=== PATIENT | female | born 1995 | race Caucasian/White ===

== ENCOUNTER 2018-09-08 11:30 | Outpatient (CLI) | payer BC ==
--- NOTE | 2018-09-08 12:26 | XRAY Report ---
Reason: CHEST PAIN,SOB Procedure Date: 09/08/2018 Accession Number: [id number] / [id number] Procedure: XR - Chest 2 View X-Ray CPT Code: 50502 FULL RESULT: EXAM: CHEST RADIOGRAPHY EXAM DATE: 09/08/2018 11:35 AM. CLINICAL HISTORY: Chest pain, shortness of breath. COMPARISON: None. TECHNIQUE: 2 views. FINDINGS: Lungs/Pleura: No focal opacities evident. No pleural effusion. No pneumothorax. High normal volumes. Mediastinum: Heart and mediastinal contours are unremarkable. Other: None. IMPRESSION: High normal lung volumes and an otherwise unremarkable radiograph. RADIA
== END 2018-09-08 11:31 | disposition home or self-care (01) ==
LOC: DI 11:30
PROVIDERS: ATTEND Physician Assistant
DX: R06.02 Shortness of breath (principal)
CPT/HCPCS: 71046

== ENCOUNTER 2018-09-12 13:52 | Emergency (ER) | payer BC ==
[2018-09-12] MEDS ORDERED: predniSONE 20 MG TABLET PO STA (14:06)
[2018-09-12] MEDS ORDERED: diphenhydrAMINE 25 MG CAPSULE PO STA (14:06)
--- NOTE | 2018-09-12 14:22 | ED Physician Documentation ---
History of Present Illness - Stated complaint Stated Complaint: ALLERGIC REACTION - Chief complaint Chief Complaint: Allergic Rx - History obtained from History obtained from: Patient - History of Present Illness Timing: Today, How many hours ago (2) Pain level max: 0 Pain level now: 0 - Additonal information Additional information: 23-year-old female presents to the emergency department with an insect bite to the right thigh. Occurred about an hour ago. Took one Benadryl. Has increasing redness. States that her throat felt tight. No wheezing or difficulty breathing. Has had allergic reactions in the past. Nothing makes it better or worse Review of Systems Constitutional: denies: Fever, Chills GI: denies: Vomiting : denies: Now [facility] PAST MEDICAL HISTORY - Past Medical History Past Medical History: No - Past Surgical History Past Surgical History: No - Present Medications Home Medications: Ambulatory Orders Medication Instructions Recorded Confirmed Dextroamphetamine/Amphetamine 10 mg PO DAILY 09/12/18 09/12/18 [Adderall Xr 10 mg Capsule] Epinephrine [Auvi-Q] 0.15 mg IJ ONCE PRN 09/12/18 09/12/18 predniSONE [Prednisone] 40 mg PO DAILY #6 tablet 09/12/18 - Allergies Allergies/Adverse Reactions: Allergies Allergy/AdvReac Type Severity Reaction Status Date / Time sulfamethoxazole Allergy Hives Verified 09/12/18 13:59 [From Bactrim] trimethoprim [From Bactrim] Allergy Hives Verified 09/12/18 13:59 ants Allergy Anaphylaxis Uncoded 09/12/18 13:59 - Social History Does the pt smoke?: No Smoking Status: Never smoker Does the pt drink ETOH?: No Does the pt have substance abuse?: No - Immunizations Immunizations are current?: Yes PD ED PE NORMAL - Vitals Vital signs reviewed: Yes - General General: Alert and oriented X 3, No acute distress - HEENT HEENT: Moist mucous membranes, Pharynx benign - Neck Neck: Supple, no meningeal sign - Cardiac Cardiac: RRR - Respiratory Respiratory: No respiratory distress, Clear bilaterally - Abdomen Abdomen: Soft, Non tender, Non distended - Derm Derm: Warm and dry, Other (3 x 4 cm area of erythema to the anterior right thigh . No induration or fluctuance.) - Neuro Neuro: Alert and oriented X 3 Results - Vitals Vitals: Vital Signs - 24 hr 09/12/18 13:57 Temperature 36.7 C Heart Rate 82 Respiratory 18 Rate Blood Pressure 145/102 H O2 Saturation 100 Oxygen O2 Source Room air PD MEDICAL DECISION MAKING - ED course Complexity details: considered differential, d/w patient ED course: Patient with a local allergic reaction to the right thigh. Lungs are clear to auscultation bilaterally. No pharyngeal swelling. No stridor. No wheezing. No hives. Will place on steroids for home and follow-up with her doctor. Patient counseled regarding signs and symptoms for which I believe and urgent re-evaluation would be necessary. Patient with good understanding of and agreement to plan and is comfortable going home at this time This document was made in part using voice recognition software. While efforts are made to proofread this document, sound alike and grammatical errors may occur. Departure - Departure Disposition: 01 Home, Self Care Clinical Impression: Allergic reaction Qualifiers: Encounter type: initial encounter Qualified Code(s): T78.40XA - Allergy, unspecified, initial encounter Condition: Good Health Concerns: allergic reaction Plan of Treatment: steroids, benadryl Care Goals: improve condition Assessment: improved Instructions: ED Bite Sting Insect Gen Allergic React Follow-Up: Todd Garzon PA-C [Primary Care Provider] - As Needed Prescriptions: predniSONE [Prednisone] 40 mg PO DAILY #6 tablet Comments: You can use Benadryl as well at home. Take steroids until gone. Return if you worsen
[2018-09-12 14:26] VITALS: BP 113/78
== END 2018-09-12 14:26 | disposition home or self-care (01) ==
LOC: ED 13:52
DX: T63.481A Toxic effect of venom of other arthropod, accidental (unintentional), initial encounter (principal); Y93.01 Activity, walking, marching and hiking; Y92.828 Other wilderness area as the place of occurrence of the external cause
CPT/HCPCS: 99283; A9270; J7512

== ENCOUNTER 2019-12-05 00:01 | Emergency (ER) | payer BC ==
--- NOTE | 2019-12-05 00:04 | ED Physician Documentation ---
History of Present Illness - Stated complaint Stated Complaint: SÁNCHEZ - History obtained from History obtained from: Patient - Additonal information Additional information: Patient is a 24-year-old female presents with a chief complaint of migraine headache. She reports she has a history of migraine headache she tried taking a dose of Maxalt which did not resolve her symptoms. She reports the headache is typical of her usual migraine headache. She denies any fevers.She states the headache is not the worst headache of her life and it is not sudden in intensity she did describe an aura she reports that before her headache started she had a feeling of seeing some abnormal lites and decreased mood and overall feeling that her headache was coming on and felt an aura and then described the headache as starting in her occiput and then diffusely spread into bilateral temples.She denies any neck pain or any recent illnesses.She denies any history of hypercoagulability or bleeding disorders denies any family history of cerebral aneurysms or subarachnoid emergency. Review of Systems Constitutional: reports: Reviewed and negative Eyes: reports: Reviewed and negative Ears: reports: Reviewed and negative Nose: reports: Reviewed and negative Throat: reports: Reviewed and negative Cardiac: reports: Reviewed and negative Respiratory: reports: Reviewed and negative GI: reports: Reviewed and negative : reports: Reviewed and negative Skin: reports: Reviewed and negative Musculoskeletal: reports: Reviewed and negative Neurologic: reports: Headache Psychiatric: reports: Reviewed and negative Endocrine: reports: Reviewed and negative Immunocompromised: reports: Reviewed and negative PD PAST MEDICAL HISTORY - Past Surgical History Past Surgical History: No - Present Medications Home Medications: Ambulatory Orders Medication Instructions Recorded Confirmed Dextroamphetamine/Amphetamine 10 mg PO DAILY 09/12/18 09/12/18 [Adderall Xr 10 mg Capsule] Epinephrine [Auvi-Q] 0.15 mg IJ ONCE PRN 09/12/18 09/12/18 - Allergies Allergies/Adverse Reactions: Allergies Allergy/AdvReac Type Severity Reaction Status Date / Time sulfamethoxazole Allergy Hives Verified 09/12/18 13:59 [From Bactrim] trimethoprim [From Bactrim] Allergy Hives Verified 09/12/18 13:59 ants Allergy Anaphylaxis Uncoded 09/12/18 13:59 - Social History Does the pt smoke?: No Smoking Status: Never smoker Does the pt drink ETOH?: No Does the pt have substance abuse?: No - Immunizations Immunizations are current?: Yes PD ED PE NORMAL - Vitals Vital signs reviewed: Yes - General General: Alert and oriented X 3, No acute distress, Well developed/nourished - HEENT HEENT: Atraumatic, PERRL, EOMI, Moist mucous membranes, Pharynx benign, Dentition benign - Neck Neck: Supple, no meningeal sign - Cardiac Cardiac: RRR, No murmur, No gallop, No rub, Strong equal pulses - Respiratory Respiratory: No respiratory distress, Clear bilaterally - Abdomen Abdomen: Normal bowel sounds, Soft, Non tender, Non distended, No organomegaly - Female Female : Deferred - Rectal Rectal: Deferred - Back Back: No CVA TTP, No spinal TTP - Derm Derm: Normal color, Warm and dry, No rash - Extremities Extremities: No deformity, No tenderness to palpate, Normal ROM s pain, No edema, No calf tenderness / cord - Neuro Neuro: Alert and oriented X 3, hydrator 2-12 intact, No motor deficit, No sensory deficit, Normal speech, Other (No droop, no unilateral weakness, normal [id number] normal [id number] normal rapid alternating movements no pronator drift sensations intact throughout strength is 5 out of 5 throughout) - Psych Psych: Normal mood, Normal affect Results - Vitals Vitals: Vital Signs - 24 hr 12/05/19 12/05/19 12/05/19 00:04 00:13 01:43 Temperature 36.4 C L 36.4 C L 36.7 C Heart Rate 70 70 83 Respiratory 16 16 18 Rate Blood Pressure 153/95 H 153/95 H 127/76 O2 Saturation 99 99 100 Oxygen O2 Source Room air - Labs Labs: Laboratory Tests 12/05/19 12/05/19 01:00 01:00 WBC 7.4 RBC 4.82 Hgb 14.3 Hct 43.0 MCV 89.2 MCH 29.7 MCHC 33.3 RDW 12.4 Plt Count 255 MPV 10.3 Neut # (Auto) 2.7 Lymph # (Auto) 3.7 H [place] # (Auto) 0.7 Eos # (Auto) 0.1 Baso # (Auto) 0.1 Absolute Nucleated RBC 0.00 Nucleated RBC % 0.0 Sodium 137 Potassium 3.6 Chloride 105 Carbon Dioxide 21 Anion Gap 11.0 BUN 16 Creatinine 0.8 Estimated GFR (MDRD) 87 L Glucose 105 H Calcium 9.1 Total Bilirubin 0.5 AST 18 ALT 12 Alkaline Phosphatase 53 Total Protein 7.6 Albumin 4.3 Globulin 3.3 Albumin/Globulin Ratio 1.3 Lipase 23 PD MEDICAL DECISION MAKING - ED course Complexity details: reviewed results, re-evaluated patient, considered differential (Migraine headache no red flags to suggest subarachnoid hemorrhage), d/w patient, d/w family ED course: 24-year-old female presents with what she is describing is a migraine headache with an aura tried Maxalt at home given a liter of IV fluids as well as IV Benadryl and Compazine her headaches completely resolved I did offer to perform imaging of the head however she is her symptoms Have completely resolved and she like to be discharged home and follow-up with her primary care provider tomorrow. Departure - Departure Disposition: 01 Home, Self Care Clinical Impression: Migraine Qualifiers: Migraine type: with aura Status migrainosus presence: without status migrainosus Intractability: not intractable Qualified Code(s): G43.109 - Migraine with aura, not intractable, without status migrainosus Condition: Stable Instructions: ED Headache Migraine Follow-Up: JENNY RODRIGUEZ DO [Primary Care Provider] - 12/06/19 Comments: call your physician on Friday to schedule a follow up. return to the emergency department for fevers, worsening headaches or any concerns. Discharge Date/Time: 12/05/19 01:43
[2019-12-05] MEDS ORDERED: PROCHLORPERAZINE 10 MG/2 ML VIAL IVP STA (00:29)
[2019-12-05] MEDS ORDERED: SODIUM CHLORIDE 0.9% 1,000 ML IV STA (00:29)
[2019-12-05] MEDS ORDERED: diphenhydrAMINE INJ 50 MG/ML VIAL IVP STA (00:29)
[2019-12-05 01:05] LABS: BASOPHILS # (AUTO) 0.1 10^3/uL (0.0-0.1); BASOPHILS % (AUTO) 0.7 %; EOSINOPHILS # (AUTO) 0.1 10^3/uL (0.0-0.7); EOSINOPHILS % (AUTO) 1.8 %; HGB - HEMOGLOBIN 14.3 g/dL (12.0-16.0); LYMPHOCYTES # (AUTO) 3.7 10^3/uL (1.5-3.5); LYMPHOCYTES % (AUTO) 50.9 %; MEAN CORPUSCULAR HEMOGLOBIN 29.7 pg (27.0-31.0); MEAN CORPUSCULAR HGB CONC 33.3 g/dL (32.0-36.0); MEAN CORPUSCULAR VOLUME 89.2 fL (81.0-99.0); MEAN PLATELET VOLUME 10.3 fL (7.9-10.8); MONOCYTES # (AUTO) 0.7 10^3/uL (0.0-1.0); MONOCYTES % (AUTO) 9.4 %; NEUTROPHILS # (AUTO) 2.7 10^3/uL (1.5-6.6); NEUTROPHILS % (AUTO) 37.1 %; PLT - PLATELET COUNT 255 10^3/uL (130-450); RED BLOOD COUNT 4.82 10^6/uL (4.20-5.40); RED CELL DISTRIBUTION WIDTH 12.4 % (12.0-15.0); WHITE BLOOD COUNT 7.4 x10^3/uL (4.8-10.8)
[2019-12-05 01:18] LABS: ALBUMIN 4.3 g/dL (3.2-5.5); ALBUMIN/GLOBULIN RATIO 1.3 (1.0-2.2); BILIRUBIN,TOTAL 0.5 mg/dL (0.2-1.0); CALCIUM 9.1 mg/dL (8.5-10.3); CREATININE 0.8 mg/dL (0.4-1.0); TOTAL PROTEIN 7.6 g/dL (6.7-8.2)
[2019-12-05 01:45] VITALS: BP 127/76
== END 2019-12-05 01:43 | disposition home or self-care (01) ==
LOC: ED 00:01
DX: G43.109 Migraine with aura, not intractable, without status migrainosus (principal)
CPT/HCPCS: 36415; 80053; 83690; 85025; 96374; 99283; J1200

== ENCOUNTER 2021-05-10 20:43 | Emergency (ER) | payer BC, OTHER ==
[2021-05-10 21:09] LABS: BILIRUBIN,URINE NEGATIVE (NEGATIVE); GLUCOSE, URINE (UA) NEGATIVE (NEGATIVE); KETONES,URINE (UA) NEGATIVE (NEGATIVE); LEUKOCYTE ESTERASE, URINE NEGATIVE (NEGATIVE); NITRITE,URINE NEGATIVE (NEGATIVE); OCCULT BLOOD,URINE NEGATIVE (NEGATIVE); PH,URINE 7.5 PH (5.0-7.5); PROTEIN,URINE NEGATIVE (NEGATIVE); UROBILINOGEN,URINE 0.2 (NORMAL) E.U./dL (NORMAL)
[2021-05-10 21:12] LABS: CLARITY,URINE CLEAR (CLEAR); HCG UR QUAL NEGATIVE
--- NOTE | 2021-05-10 23:03 | ED Physician Documentation ---
History of Present Illness - Stated complaint Stated Complaint: FEMALE /FEVER/BACK PX - Chief complaint Chief Complaint: UTI - History obtained from History obtained from: Patient - History of Present Illness Timing: How many weeks ago (2) Improved by: no ameliorating factors Worsened by: no exacerbating factors - Additonal information Additional information: c/o 2 weeks of suprapubic burning pain, not clearly temporally related to urinating nor any other exacerbating factors. She also has pain across lower back which also has no exacerbating nor ameliorating factors. She was evaluated in outpatient setting and she says a UA performed was normal, but she was prescribed amoxil TID, presumably for suspected UTI based on symptoms. Tonight she developed fever Tmax 101.5, prompting her to come to ED as per instructions by her primary care provider. She is COVID vaccinated. She took tylenol CANOPY STRINGER; she says she took two 650mg acetaminophen that was a slow-release form (she says this was accidental, as she knows not to take more than 1 of these tablets per dose) Review of Systems Constitutional: reports: Fever, Chills. denies: Myalgias, Fatigue Cardiac: reports: Reviewed and negative Respiratory: reports: Reviewed and negative GI: reports: Abdominal Pain (suprapubic burning, but no abdominal pain per se). denies: Nausea, Vomiting, Constipation, Diarrhea : denies: Dysuria, Frequency, Hematuria, Discharge, Now EGA Skin: denies: Rash, Lesions Musculoskeletal: reports: Back pain PD PAST MEDICAL HISTORY - Past Medical History Neuro: Migraines - Past Surgical History Past Surgical History: No - Present Medications Home Medications: Ambulatory Orders Medication Instructions Recorded Confirmed Dextroamphetamine/Amphetamine 10 mg PO DAILY 09/12/18 09/12/18 [Adderall Xr 10 mg Capsule] EPINEPHrine [Auvi-Q] 0.15 mg IJ ONCE PRN 09/12/18 09/12/18 - Allergies Allergies/Adverse Reactions: Allergies Allergy/AdvReac Type Severity Reaction Status Date / Time sulfamethoxazole Allergy Hives Verified 05/10/21 20:46 [From Bactrim] trimethoprim [From Bactrim] Allergy Hives Verified 05/10/21 20:46 ants Allergy Anaphylaxis Uncoded 05/10/21 20:46 - Social History Does the pt smoke?: No Smoking Status: Never smoker Does the pt drink ETOH?: No Does the pt have substance abuse?: No - Immunizations Immunizations are current?: Yes PD ED PE NORMAL - Vitals Vital signs reviewed: Yes - General General: Alert and oriented X 3, No acute distress, Well developed/nourished - Cardiac Cardiac: RRR, No murmur - Respiratory Respiratory: No respiratory distress, Clear bilaterally - Abdomen Abdomen: Normal bowel sounds, Soft, Non tender, Non distended - Back Back: No CVA TTP Results - Vitals Vitals: Oxygen O2 Source Room air - Labs Labs: Laboratory Tests 05/10/21 05/10/21 05/10/21 20:57 23:37 23:37 WBC 4.5 L RBC 4.65 Hgb 13.3 Hct 40.3 MCV 86.7 MCH 28.6 MCHC 33.0 RDW 11.9 L Plt Count 205 MPV 10.3 Neut # (Auto) 3.4 Lymph # (Auto) 0.4 L [place] # (Auto) 0.6 Eos # (Auto) 0.1 Baso # (Auto) 0.0 Absolute Nucleated RBC 0.00 Nucleated RBC % 0.0 Sodium 138 Potassium 3.5 Chloride 105 Carbon Dioxide 24 Anion Gap 9.0 BUN 10 Creatinine 0.7 Estimated GFR (MDRD) 101 Glucose 98 Calcium 9.2 Urine Color LT. YELLOW Urine Clarity CLEAR Urine pH 7.5 Ur Specific [place] 1.020 Urine Protein NEGATIVE Urine Glucose (UA) NEGATIVE Urine Ketones NEGATIVE Urine Occult Blood NEGATIVE Urine Nitrite NEGATIVE Urine Bilirubin NEGATIVE Urine Urobilinogen 0.2 (NORMAL) Ur Leukocyte Esterase NEGATIVE Ur Microscopic Review NOT INDICATED Urine Culture Comments NOT INDICATED Urine HCG, Qual NEGATIVE PD MEDICAL DECISION MAKING - ED course Complexity details: reviewed results, re-evaluated patient, considered differential, d/w patient ED course: suprapubic burning and discomfort with mild low back pain (across low back). Febrile at home but afebrile in ED. UA is unremarkable as are CBC, ER abdominal panel (mild leukopenia noted). She is in NAD and abdominal exam is normal (nontender throughout). Further testing is not indicated at this time. No cause for her symptoms is apparent based on tests, H+P. Test results reviewed with patient, instructed to return if worse, follow up with PMD next available appointment. Departure - Departure Disposition: 01 Home, Self Care Clinical Impression: Febrile illness, acute Condition: Good Instructions: ED Fever Unconf Cause Follow-Up: JENNY RODRIGUEZ DO [Primary Care Provider] - Comments: The cause of your symptoms and fever are unclear at this time. Your urinalysis and blood tests are normal with the exception of a slightly low white blood cell count; as we discussed, this finding is not a cause for concern and is likely a coincidental finding. You can follow up with your primary care provider regarding your symptoms / fever, as well as the low white blood cell count. Discharge Date/Time: 05/11/21 00:44
[2021-05-10 23:41] LABS: BASOPHILS % (AUTO) 0.7 %; EOSINOPHILS # (AUTO) 0.1 10^3/uL (0.0-0.7); EOSINOPHILS % (AUTO) 1.1 %; HCT - HEMATOCRIT 40.3 % (37.0-47.0); HGB - HEMOGLOBIN 13.3 g/dL (12.0-16.0); LYMPHOCYTES # (AUTO) 0.4 10^3/uL (1.5-3.5); LYMPHOCYTES % (AUTO) 9.7 %; MEAN CORPUSCULAR HEMOGLOBIN 28.6 pg (27.0-31.0); MEAN CORPUSCULAR VOLUME 86.7 fL (81.0-99.0); MEAN PLATELET VOLUME 10.3 fL (7.9-10.8); MONOCYTES # (AUTO) 0.6 10^3/uL (0.0-1.0); MONOCYTES % (AUTO) 12.6 %; NEUTROPHILS # (AUTO) 3.4 10^3/uL (1.5-6.6); NEUTROPHILS % (AUTO) 75.9 %; PLT - PLATELET COUNT 205 10^3/uL (130-450); RED BLOOD COUNT 4.65 10^6/uL (4.20-5.40); RED CELL DISTRIBUTION WIDTH 11.9 % (12.0-15.0); WHITE BLOOD COUNT 4.5 x10^3/uL (4.8-10.8)
[2021-05-10 23:50] LABS: CALCIUM 9.2 mg/dL (8.5-10.3); CREATININE 0.7 mg/dL (0.4-1.0); POTASSIUM 3.5 mmol/L (3.5-5.0)
[2021-05-11 00:44] VITALS: BP 135/86
== END 2021-05-11 00:44 | disposition home or self-care (01) ==
LOC: ED 20:43
DX: R50.9 Fever, unspecified (principal)
CPT/HCPCS: 36415; 80048; 81001; 81003; 81025; 85025; 87086; 99282; 99283

== ENCOUNTER 2022-06-11 12:30 | Outpatient (CLI) | payer OTHER ==
[2022-06-11 17:46] LABS: EOSINOPHILS # (AUTO) 0.4 10^3/uL (0.0-0.7); EOSINOPHILS % (AUTO) 8.7 %; HCT - HEMATOCRIT 43.8 % (37.0-47.0); HGB - HEMOGLOBIN 14.1 g/dL (12.0-16.0); LYMPHOCYTES # (AUTO) 1.6 10^3/uL (1.5-3.5); LYMPHOCYTES % (AUTO) 38.6 %; MEAN CORPUSCULAR HEMOGLOBIN 28.1 pg (27.0-31.0); MEAN CORPUSCULAR HGB CONC 32.2 g/dL (32.0-36.0); MEAN CORPUSCULAR VOLUME 87.3 fL (81.0-99.0); MEAN PLATELET VOLUME 10.4 fL (7.9-10.8); MONOCYTES # (AUTO) 0.4 10^3/uL (0.0-1.0); MONOCYTES % (AUTO) 8.7 %; NEUTROPHILS # (AUTO) 1.7 10^3/uL (1.5-6.6); NEUTROPHILS % (AUTO) 42.5 %; PLT - PLATELET COUNT 267 10^3/uL (130-450); RED BLOOD COUNT 5.02 10^6/uL (4.20-5.40); RED CELL DISTRIBUTION WIDTH 11.9 % (12.0-15.0)
[2022-06-11 17:55] LABS: ALBUMIN 3.8 g/dL (3.2-5.5); BILIRUBIN,TOTAL 0.4 mg/dL (0.2-1.0); CALCIUM 8.9 mg/dL (8.5-10.3); CREATININE 0.8 mg/dL (0.4-1.0); POTASSIUM 3.8 mmol/L (3.5-5.0); TOTAL PROTEIN 7.6 g/dL (6.7-8.2)
== END 2022-06-11 12:45 | disposition home or self-care (01) ==
LOC: LAB.N 12:30
PROVIDERS: ATTEND Physician Assistant
DX: M79.10 Myalgia, unspecified site (principal); R50.9 Fever, unspecified
CPT/HCPCS: 36415; 80053; 82550; 85025